=== PATIENT | female | born 1980 | race Caucasian/White ===

== ENCOUNTER 2018-04-18 06:20 | Emergency (ER) | payer MEDICAID ==
[~2018-04-18] VITALS: Ht 154.9 cm; Wt 87.9 kg
[2018-04-18 07:37] LABS: CHLORIDE 108 mEq/L (98-107)
[2018-04-18 07:38] LABS: INR 1.1
[2018-04-18 07:39] LABS: BASOPHILS % 0.8 % (0.0-2.0); EOSINOPHILS % 7.8 % (0.0-5.0); HEMATOCRIT. 34.6 % (36.0-48.0); HEMOGLOBIN. 11.1 g/dL (12.0-16.0); LYMPHOCYTES % 34.6 % (20.0-50.0); MEAN CORPUSCULAR HEMOGLOBIN 24.7 pg (28.0-32.0); MEAN CORPUSCULAR VOLUME 76.5 fL (81.0-99.0); MEAN PLATELET VOLUME 10.3 fl (7.4-10.4); NEUTROPHILS % 50.8 % (40.0-76.0); PLATELET 251 x1000/uL (130-400); RED BLOOD CELL COUNT 4.52 mill/uL (4.2-5.4); RED CELL DISTRIBUTION WIDTH 15.6 % (11.6-14.6)
[2018-04-18 07:56] LABS: CLARITY URINE CLEAR (CLEAR); COLOR URINE DARK YELLOW (YELLOW); KETONES URINE TRACE (NEGATIVE); LEUKOCYTE ESTERASE URINE NEGATIVE (NEGATIVE); NITRITE URINE NEGATIVE (NEGATIVE); OCCULT BLOOD URINE TRACE (NEGATIVE); PROTEIN URINE TRACE (NEGATIVE)
[2018-04-18] MEDS ORDERED: POTASSIUM CHLORIDE 20MEQ TABLET SR PO STA (08:25)
[2018-04-18] MEDS ORDERED: KCL 20MEQ/100ML PREMIX 100 ML IV ONE (08:30)
[2018-04-18] MEDS ORDERED: IOHEXOL-300 100 ML BOTTLE ONE (10:14)
[2018-04-18 13:30] VITALS: BP 104/79
== END 2018-04-18 14:07 | disposition home or self-care (01) ==
LOC: ER 07:25
DX: R10.13 Epigastric pain (principal); R06.02 Shortness of breath; C16.9 Malignant neoplasm of stomach, unspecified; D50.9 Iron deficiency anemia, unspecified; E87.6 Hypokalemia; R03.0 Elevated blood-pressure reading, without diagnosis of hypertension; Q61.3 Polycystic kidney, unspecified; K42.9 Umbilical hernia without obstruction or gangrene; J45.909 Unspecified asthma, uncomplicated
CPT/HCPCS: 36415; 71045; 74177; 80053; 81003; 83690; 84484; 85025; 85610; 93005; 96365; 99285; J3480; J7040; Q9967; Z7610

== ENCOUNTER 2018-09-13 15:54 | Emergency (ER) | payer MEDICAID ==
[~2018-09-13] VITALS: Ht 162.6 cm; Wt 86.0 kg
[2018-09-13] MEDS ORDERED: SODIUM CHLORIDE 0.9% 1,000 ML IV ONE (20:44)
[2018-09-13] MEDS ORDERED: ONDANSETRON HCL 4MG/2ML INJ IV STA (20:44)
[2018-09-13] MEDS ORDERED: FAMOTIDINE 20MG/2ML VIAL IV STA (20:44)
[2018-09-13 21:25] LABS: BASOPHILS % 0.6 % (0.0-2.0); EOSINOPHILS % 7.9 % (0.0-5.0); HEMATOCRIT. 36.1 % (36.0-48.0); HEMOGLOBIN. 11.4 g/dL (12.0-16.0); MEAN CORPUSCULAR HEMOGLOBIN 25.2 pg (28.0-32.0); MEAN CORPUSCULAR VOLUME 79.5 fL (81.0-99.0); MEAN PLATELET VOLUME 10.2 fl (7.4-10.4); MONOCYTES % 4.4 % (2.0-8.0); NEUTROPHILS % 51.1 % (40.0-76.0); PLATELET 237 x1000/uL (130-400); RED BLOOD CELL COUNT 4.55 mill/uL (4.2-5.4); RED CELL DISTRIBUTION WIDTH 15.4 % (11.6-14.6)
[2018-09-13 21:29] LABS: CHLORIDE 107 mEq/L (98-107); PROTHROMBIN TIME 10.5 sec (9.1-11.1)
[2018-09-13 21:32] LABS: HCG SCREEN NEGATIVE
[2018-09-13] MEDS ORDERED: KETOROLAC 30MG/ML VIAL IV ONE (22:00)
[2018-09-13 22:48] LABS: CLARITY URINE CLEAR (CLEAR); COLOR URINE YELLOW (YELLOW); KETONES URINE NEGATIVE (NEGATIVE); LEUKOCYTE ESTERASE URINE 2+ (NEGATIVE); NITRITE URINE NEGATIVE (NEGATIVE); OCCULT BLOOD URINE NEGATIVE (NEGATIVE); PH URINE 6.5 (4.5-8.0); PROTEIN URINE NEGATIVE (NEGATIVE); SPECIFIC GRAVITY URINE 1.019 (1.005-1.030)
[2018-09-13] MEDS ORDERED: CEFTRIAXONE 1 G PREMIX 50 ML IV ONE (23:00)
[2018-09-14 00:11] VITALS: BP 110/47
== END 2018-09-14 00:31 | disposition home or self-care (01) ==
LOC: ER 15:54
DX: C16.9 Malignant neoplasm of stomach, unspecified (principal); R10.9 Unspecified abdominal pain; R11.10 Vomiting, unspecified; N39.0 Urinary tract infection, site not specified; J02.9 Acute pharyngitis, unspecified; J45.909 Unspecified asthma, uncomplicated
CPT/HCPCS: 36415; 80053; 81003; 81025; 83690; 84703; 85025; 85610; 87804; 96361; 96365; 96375; 99284; J0696; J1885; J2405; J3490; J7030